=== PATIENT | male | born 1965 | race Two or more races ===

== ENCOUNTER 2017-08-06 09:49 | Emergency (ER) | payer MEDICAID ==
[~2017-08-06] VITALS: Ht 193 cm; Wt 71.0 kg
[2017-08-06 14:50] VITALS: BP 118/68
== END 2017-08-06 15:40 | disposition left against medical advice (07) ==
LOC: ER 12:57
DX: Z53.21 Procedure and treatment not carried out due to patient leaving prior to being seen by health care provider (principal)

== ENCOUNTER 2018-06-17 07:41 | Emergency (ER) | payer MEDICAID ==
[~2018-06-17] VITALS: Ht 185.4 cm; Wt 73.0 kg
[2018-06-17 12:59] VITALS: BP 118/83
== END 2018-06-17 13:03 | disposition home or self-care (01) ==
LOC: ER 07:41
DX: L26 Exfoliative dermatitis (principal); L03.113 Cellulitis of right upper limb; R20.2 Paresthesia of skin; B35.6 Tinea cruris; L97.219 Non-pressure chronic ulcer of right calf with unspecified severity; R03.0 Elevated blood-pressure reading, without diagnosis of hypertension; F17.210 Nicotine dependence, cigarettes, uncomplicated
CPT/HCPCS: 73502; 99284

== ENCOUNTER 2019-04-17 09:20 | Emergency (ER) | payer MEDICAID ==
[~2019-04-17] VITALS: Ht 185.4 cm; Wt 75.0 kg
[2019-04-17] MEDS ORDERED: FLUORESCEIN SODIUM 1MG/STRIP OP ONE (10:00)
[2019-04-17] MEDS ORDERED: TETRACAINE 0.5% OPHTH DROPS 4ML OP ONE (10:00)
[2019-04-17] MEDS ORDERED: CYCLOPENTOLATE HCL 1% OPHTH DROPS 2ML LEFTEYE ONE (10:45)
[2019-04-17 12:46] VITALS: BP 136/82
== END 2019-04-17 12:45 | disposition home or self-care (01) ==
LOC: ER 09:20
DX: H57.12 Ocular pain, left eye (principal); H20.9 Unspecified iridocyclitis; F12.10 Cannabis abuse, uncomplicated; Z98.890 Other specified postprocedural states
CPT/HCPCS: 99284

== ENCOUNTER 2019-06-04 06:37 | Emergency (ER) | payer MEDICAID ==
[~2019-06-04] VITALS: Ht 185.4 cm; Wt 73.0 kg
[2019-06-04 07:14] VITALS: BP 117/79
[2019-06-04] MEDS ORDERED: KETOROLAC 30MG/ML VIAL IM ONE (08:30)
== END 2019-06-04 08:30 | disposition left against medical advice (07) ==
LOC: ER 06:37
DX: M54.5 Low back pain (principal); M79.644 Pain in right finger(s); M25.562 Pain in left knee; M25.561 Pain in right knee; M19.90 Unspecified osteoarthritis, unspecified site
CPT/HCPCS: 99281